=== PATIENT | female | born 1995 | race Caucasian/White ===

== ENCOUNTER 2016-07-11 13:37 | Emergency (ER) | payer OTHER ==
[2016-07-11] MEDS ORDERED: LIDOCAINE VISCOUS 2% 15 ML UDC MM STA (16:44)
[2016-07-11] MEDS ORDERED: MAG HYDROX/AL HYDROX/SIMETH 30 ML UDC PO STA (16:44)
[2016-07-11] MEDS ORDERED: ONDANSETRON 4 MG/2 ML VIAL IVP STA (16:45)
[2016-07-11] MEDS ORDERED: KETOROLAC 60 MG/2 ML VIAL IVP STA (16:45)
[2016-07-11] MEDS ORDERED: KETOROLAC 30 MG/ML VIAL ONE (16:45)
[2016-07-11] MEDS ORDERED: ONDANSETRON 4 MG/2 ML VIAL ONE (16:45)
[2016-07-11] MEDS ORDERED: LIDOCAINE VISCOUS 2% 15 ML UDC MM ONE (16:46)
[2016-07-11] MEDS ORDERED: MAG HYDROX/AL HYDROX/SIMETH 30 ML UDC ONE (16:46)
[2016-07-11] MEDS ORDERED: IOPAMIDOL-300 100 ML VIAL IVP ONE (17:50)
[2016-07-11] MEDS ORDERED: METOCLOPRAMIDE 10 MG/2 ML VIAL IVP STA (18:03)
[2016-07-11] MEDS ORDERED: METOCLOPRAMIDE 10 MG/2 ML VIAL IVP ONE (18:08)
[2016-07-11] MEDS ORDERED: MAGNESIUM CITRATE 296 ML BOTTLE PO STA (18:30)
[2016-07-11] MEDS ORDERED: MAGNESIUM CITRATE 296 ML BOTTLE ONE (18:34)
== END 2016-07-11 18:42 | disposition home or self-care (01) ==
DX: R10.84 Generalized abdominal pain (principal); R10.817 Generalized abdominal tenderness; R07.9 Chest pain, unspecified; K59.00 Constipation, unspecified; Z85.820 Personal history of malignant melanoma of skin; Z92.21 Personal history of antineoplastic chemotherapy; Z92.3 Personal history of irradiation; Z79.3 Long term (current) use of hormonal contraceptives
CPT/HCPCS: 36415; 71020; 74177; 76705; 80053; 81003; 81025; 83690; 84484; 85025; 85379; 93005; 93010; 96374; 96375; 99283; 99284; A9270; Q9967